=== PATIENT | female | born 1950 | race Caucasian/White ===

== ENCOUNTER → 2017-01-17 | Outpatient (CLI) | payer MEDICARE ==
--- NOTE | 2017-01-18 08:53 | RADIOLOGY REPORT (SQ) ---
EXAM DESCRIPTION: L SPINE WHOLE COMPLETED DATE/TIME: 01/17/2017 8:00 pm REASON FOR STUDY: RADICULOPATHY,LUMBAR REGION,PAIN IN RIGHT HIP,POSTLAMINECTOMY SYNDROME COMPARISON: None. NUMBER OF VIEWS: Five views including obliques. TECHNIQUE: AP, lateral, oblique, and sacral radiographic images acquired of the lumbar spine. LIMITATIONS: None. FINDINGS: MINERALIZATION: Osteopenic SEGMENTATION: Normal. No transitional anatomy. ALIGNMENT: Normal. VERTEBRAE: Maintained height. No fracture or worrisome bone lesion. DISCS: Diffuse disc space loss of height throughout the lumbar spine. Prior fusion with disc space p rosthesis at L4-5. Prior fusion without disc space prosthesis at L5-S1. POSTERIOR ELEMENTS: Old bilateral laminectomies at L4 and L5. Bulky facet arthropathy at L2-3 and L3 -4. HARDWARE: Prior fusion with transpedicular screws and dorsal fixation plates from L4 through S1. PARASPINAL SOFT TISSUES: Normal. PELVIS: Visualized SI joints unremarkable. Moderate right hip joint space narrowing. OTHER: No other significant finding. IMPRESSION: Lower lumbar fusion. Degenerative disc changes and facet arthropathy throughout the lum bar spine as above TECHNICAL DOCUMENTATION: JOB ID: [id number] [employer]- All Rights Reserved
--- NOTE | 2017-01-18 09:55 | RADIOLOGY REPORT (SQ) ---
EXAM DESCRIPTION: HIP RIGHT AP/LATERAL COMPLETED DATE/TIME: 01/17/2017 8:00 pm REASON FOR STUDY: RADICULOPATHY,LUMBAR REGION,PAIN IN RIGHT HIP,POSTLAMINECTOMY SYNDROME COMPARISON: None. NUMBER OF VIEWS: Two views. TECHNIQUE: AP and frog-leg view of the right hip. LIMITATIONS: None. FINDINGS: MINERALIZATION: Normal. RIGHT HIP: There is joint space narrowing and subchondral sclerosis. Small osteophytes off the super olateral acetabulum. No acute fracture or dislocation. OPPOSITE HIP: Similar changes are present the left hip. SOFT TISSUES: No findings. OTHER: No other significant finding. IMPRESSION: Degenerative changes in both hips right greater than left. No acute fracture or disloca tion. TECHNICAL DOCUMENTATION: JOB ID: [id number] [employer]- All Rights Reserved
== END ==
LOC: RAD 19:15
PROVIDERS: ATTEND Physician Assistant
DX: M54.16 Radiculopathy, lumbar region (principal); M96.1 Postlaminectomy syndrome, not elsewhere classified; M25.551 Pain in right hip
CPT/HCPCS: 72110

== ENCOUNTER → 2019-06-07 | Outpatient (CLI) | payer MEDICARE, OTHER ==
[2019-06-07 12:02] LABS: ABSOLUTE BASOPHILS # (AUTO) 0.2 10^3/uL (0.0-0.2); ABSOLUTE EOSINOPHILS # (AUTO) 0.2 10^3/uL (0.0-0.6); ABSOLUTE LYMPHOCYTES (AUTO) 1.4 10^3/uL (0.5-4.7); ABSOLUTE MONOCYTES (AUTO) 0.4 10^3/uL (0.1-1.4); ABSOLUTE NEUT (AUTO) 4.4 10^3/uL (1.7-8.2); BASOPHILS % (AUTO) 2.3 % (0-2); EOSINOPHILS % (AUTO) 3.5 % (0-6); HEMATOCRIT 40.7 % (36.0-47.0); HEMOGLOBIN 13.6 g/dL (12.0-15.5); LYMPHOCYTES % (AUTO) 21.9 % (13-45); MEAN CORPUSCULAR HEMOGLOBIN 28.5 pg (27.0-33.4); MEAN CORPUSCULAR HGB CONC 33.4 g/dL (32.0-36.0); MEAN CORPUSCULAR VOLUME 85 fl (80-97); PLATELET COUNT 243 10^3/uL (150-450); RED BLOOD COUNT 4.76 10^6/uL (3.72-5.28); SEGMENTED NEUTROPHILS % (AUTO) 66.3 % (42-78); TOTAL CELLS COUNTED % (AUTO) 100 %; WHITE BLOOD COUNT 6.6 10^3/uL (4.0-10.5)
[2019-06-07 12:29] LABS: ALBUMIN 4.3 g/dL (3.5-5.0); ANION GAP 11 (5-19); BLOOD UREA NITROGEN 24 mg/dL (7-20); C-REACTIVE PROTEIN 5.4 mg/L (<10.0); CARBON DIOXIDE 32 mmol/L (22-30); CHLORIDE 99 mmol/L (98-107); GLUCOSE 88 mg/dL (75-110); POTASSIUM 4.1 mmol/L (3.6-5.0)
[2019-06-07 12:33] LABS: PREALBUMIN 18.1 mg/dL (17.6-36.0)
[2019-06-07 12:54] LABS: ERYTHROCYTE SEDIMENTATION RATE 54 mm/hr (0-30)
--- NOTE | 2019-06-07 13:49 | RADIOLOGY REPORT (SQ) ---
EXAM DESCRIPTION: CHEST PA/LATERAL COMPLETED DATE/TIME: 06/07/2019 12:29 pm REASON FOR STUDY: ENCOUNTER FOR PREPROCEDURAL LABORATORY EXAMINATION COMPARISON: None. EXAM PARAMETERS: NUMBER OF VIEWS: two views TECHNIQUE: PA and lateral views of the chest were obtained. RADIATION DOSE: NA LIMITATIONS: none FINDINGS: LUNGS AND PLEURA: No consolidation, pleural effusion or pneumothorax. MEDIASTINUM AND HILAR STRUCTURES: No mediastinal or hilar contour abnormality. HEART AND VASCULAR STRUCTURES: The cardiac silhouette and pulmonary vasculature are within normal almanzar its. BONES: Findings of DISH. HARDWARE: Surgical clips that project near the gastroesophageal junction. OTHER: No other finding. IMPRESSION: No acute cardiopulmonary process. TECHNICAL DOCUMENTATION: JOB ID: [id number] [employer]- All Rights Reserved Reading location - IP/workstation name: [email or web address]
--- NOTE | 2019-06-07 21:22 | EKG REPORT ---
SEVERITY:- DEFECTIVE ECG - SINUS RHYTHM BASELINE ARTIFACT : Confirmed by: Paulina Goodwin MD 07-Jun-2019 21:21:37
== END ==
LOC: OD 11:18
PROVIDERS: ATTEND Orthopaedic Surgery
DX: Z01.810 Encounter for preprocedural cardiovascular examination (principal); Z01.818 Encounter for other preprocedural examination; I10 Essential (primary) hypertension; R73.09 Other abnormal glucose
CPT/HCPCS: 36415; 71046; 80048; 82040; 82306; 83036; 84134; 85025; 85652; 86140; 93005; 93010

== ENCOUNTER 2019-06-19 09:34 | Inpatient (IN) | payer MEDICARE, OTHER ==
[~2019-06-19 09:34] MED LIST: ACETAMINOPHEN 325 MG TABLET ONE; ACETAMINOPHEN 325 MG TABLET PO PRN; CEFAZOLIN SODIUM 2 GM in DEXTROSE 5%-WATER 100 ML IV PRN; CELECOXIB 200 MG CAPSULE ONE; CELECOXIB 200 MG CAPSULE PO PRN; GABAPENTIN 100 MG CAPSULE ONE; GABAPENTIN 100 MG CAPSULE PO PRN; LACTATED RINGERS 1000 ML IV PRN; ONDANSETRON HCL INJ/PF 4 MG/2 ML SDV IV PRN; ONDANSETRON HCL INJ/PF 4 MG/2 ML SDV ONE; OXYCODONE HCL SR 10 MG TABLET PO ONE; OXYCODONE HCL SR 10 MG TABLET PO PRN; SCOPOLAMINE HYDROBROMIDE 1.5 MG PATCH.TD72 ONE; SCOPOLAMINE HYDROBROMIDE 1.5 MG PATCH.TD72 TD PRN; TRAMADOL HCL 50 MG TABLET ONE; TRAMADOL HCL 50 MG TABLET PO PRN; TRANEXAMIC ACID INJ/PF 1,000 MG/10 ML SDV IV PRN; VANCOMYCIN HCL 1,000 MG in DEXTROSE 5%-WATER 250 ML IV PRN
[2019-07-11] MEDS ORDERED: LACTATED RINGERS 1000 ML IV PRN (05:00)
[2019-07-11] MEDS ORDERED: ACETAMINOPHEN 325 MG TABLET PO PRN (05:00)
[2019-07-11] MEDS ORDERED: TRANEXAMIC ACID INJ/PF 1,000 MG/10 ML SDV IV PRN (05:00)
[2019-07-11] MEDS ORDERED: SCOPOLAMINE HYDROBROMIDE 1.5 MG PATCH.TD72 TD PRN (05:00)
[2019-07-11] MEDS ORDERED: VANCOMYCIN HCL 1,000 MG in DEXTROSE 5%-WATER 250 ML IV PRN (05:00)
[2019-07-11] MEDS ORDERED: ONDANSETRON HCL INJ/PF 4 MG/2 ML SDV IV PRN (05:00)
[2019-07-11] MEDS ORDERED: GABAPENTIN 100 MG CAPSULE PO PRN (05:00)
[2019-07-11] MEDS ORDERED: OXYCODONE HCL SR 10 MG TABLET PO PRN (05:00)
[2019-07-11] MEDS ORDERED: CELECOXIB 200 MG CAPSULE PO PRN (05:00)
[2019-07-11] MEDS ORDERED: CEFAZOLIN SODIUM 2 GM in DEXTROSE 5%-WATER 100 ML IV PRN (05:00)
[2019-07-11] MEDS ORDERED: TRAMADOL HCL 50 MG TABLET PO PRN (05:00)
[2019-07-11] MEDS ORDERED: FENTANYL CITRATE INJ/PF 100 MCG/2 ML AMPUL ONE (06:58)
[2019-07-11] MEDS ORDERED: MIDAZOLAM 2 MG/2 ML INJ ONE (06:58)
[2019-07-11] MEDS ORDERED: DEXAMETHASONE SOD PHOSPHATE INJ 4 MG/1 ML VIAL ONE (06:59)
[2019-07-11] MEDS ORDERED: PROPOFOL INJ 200 MG/20 ML VIAL IV ONE (06:59)
[2019-07-11] MEDS ORDERED: ONDANSETRON HCL INJ/PF 4 MG/2 ML SDV ONE (06:59)
[2019-07-11] MEDS ORDERED: VANCOMYCIN HCL INJ 1000 MG VIAL ONE (08:09)
[2019-07-11] MEDS ORDERED: KETOROLAC TROMETHAMINE INJ/PF 30 MG/1 ML SDV ONE (08:09)
[2019-07-11] MEDS ORDERED: BUPIVACAINE HCL 0.25 % INJ/PF (2.5 MG/1 ML) 30 ML VIAL ONE (08:09)
[2019-07-16] MEDS ORDERED: ONDANSETRON HCL INJ/PF 4 MG/2 ML SDV IV PRN (05:00)
[2019-07-16] MEDS ORDERED: ACETAMINOPHEN 325 MG TABLET PO PRN (05:00)
[2019-07-16] MEDS ORDERED: VANCOMYCIN HCL 1,000 MG in DEXTROSE 5%-WATER 250 ML IV PRN (05:00)
[2019-07-16] MEDS ORDERED: OXYCODONE HCL SR 10 MG TABLET PO PRN (05:00)
[2019-07-16] MEDS ORDERED: TRANEXAMIC ACID INJ/PF 1,000 MG/10 ML SDV IV PRN (05:00)
[2019-07-16] MEDS ORDERED: GABAPENTIN 100 MG CAPSULE PO PRN (05:00)
[2019-07-16] MEDS ORDERED: LACTATED RINGERS 1000 ML IV PRN (05:00)
[2019-07-16] MEDS ORDERED: TRAMADOL HCL 50 MG TABLET PO PRN (05:00)
[2019-07-16] MEDS ORDERED: SCOPOLAMINE HYDROBROMIDE 1.5 MG PATCH.TD72 TD PRN (05:00)
[2019-07-16] MEDS ORDERED: CEFAZOLIN SODIUM 2 GM in DEXTROSE 5%-WATER 100 ML IV PRN (05:00)
[2019-07-16] MEDS ORDERED: CELECOXIB 200 MG CAPSULE PO PRN (05:00)
[2019-07-16] MEDS ORDERED: OXYCODONE HCL SR 10 MG TABLET PO ONE (05:20)
[2019-07-16] MEDS ORDERED: ONDANSETRON HCL INJ/PF 4 MG/2 ML SDV ONE ×2 (05:20→12:37)
[2019-07-16] MEDS ORDERED: SCOPOLAMINE HYDROBROMIDE 1.5 MG PATCH.TD72 ONE (05:20)
[2019-07-16] MEDS ORDERED: ACETAMINOPHEN 325 MG TABLET ONE (05:20)
[2019-07-16] MEDS ORDERED: GABAPENTIN 100 MG CAPSULE ONE (05:20)
[2019-07-16] MEDS ORDERED: TRAMADOL HCL 50 MG TABLET ONE (05:20)
[2019-07-16] MEDS ORDERED: CELECOXIB 200 MG CAPSULE ONE (05:22)
[2019-07-16] MEDS ORDERED: METOPROLOL SUCCINATE 25 MG TAB.SR.24H PO ONE (09:34)
[2019-07-16] MEDS ORDERED: GENTAMICIN SULFATE INJ 80 MG/2 ML VIAL ONE (11:58)
[2019-07-16] MEDS ORDERED: KETOROLAC TROMETHAMINE INJ/PF 30 MG/1 ML SDV ONE (11:58)
[2019-07-16] MEDS ORDERED: VANCOMYCIN HCL INJ 1000 MG VIAL ONE (11:58)
[2019-07-16] MEDS ORDERED: BUPIVACAINE HCL 0.25 % INJ/PF (2.5 MG/1 ML) 30 ML VIAL ONE (11:58)
[2019-07-16] MEDS ORDERED: ROCURONIUM BROMIDE INJ 50 MG/5 ML VIAL IV ONE (12:37)
[2019-07-16] MEDS ORDERED: NEOSTIGMINE METHYLSULFATE 10 MG/10 ML VIAL ONE (12:37)
[2019-07-16] MEDS ORDERED: GLYCOPYRROLATE 1 MG/5 ML VIAL ONE (12:37)
[2019-07-16] MEDS ORDERED: PHENYLEPHRINE HCL INJ/PF 10 MG/1 ML SDV ONE (12:37)
[2019-07-16] MEDS ORDERED: DEXAMETHASONE SOD PHOSPHATE INJ 4 MG/1 ML VIAL ONE (12:37)
[2019-07-16] MEDS ORDERED: FENTANYL CITRATE INJ/PF 250 MCG/5 ML AMPULE ONE (12:39)
[2019-07-16] MEDS ORDERED: MIDAZOLAM 2 MG/2 ML INJ ONE (12:39)
[2019-07-16] MEDS ORDERED: HYDROMORPHONE HCL INJ/PF 2 MG/ML AMPULE ONE (12:40)
[2019-07-16] MEDS ORDERED: PROPOFOL INJ 200 MG/20 ML VIAL IV ONE (12:41)
[2019-07-16] MEDS ORDERED: TRANEXAMIC ACID INJ/PF 1,000 MG/10 ML SDV ONE (12:41)
[2019-07-16] MEDS ORDERED: BACITRACIN INJ 50,000 UNIT VIAL ONE (12:44)
[2019-07-16] MEDS ORDERED: LIDOCAINE 1% INJ-PF (10 MG/ML) 30 ML SDV ONE (12:44)
[2019-07-16] MEDS ORDERED: FENTANYL CITRATE INJ/PF 100 MCG/2 ML AMPUL IV PRN ×3 (13:43)
[2019-07-16] MEDS ORDERED: PROMETHAZINE HCL INJ 25 MG/1 ML VIAL IV PRN (13:43)
[2019-07-16] MEDS ORDERED: DIPHENHYDRAMINE HCL 50 MG/ML VIAL IV PRN (13:43)
--- NOTE | 2019-07-16 15:15 | Operative Report ---
Operative Report DATE OF SURGERY: 07/16/19 PREOPERATIVE DIAGNOSIS: Severe left hip primary osteoarthritis POSTOPERATIVE DIAGNOSIS: Severe left hip primary osteoarthritis OPERATION: Left total hip arthroplasty SURGEON: NADIR COOL JR ANESTHESIA: GA COMPLICATIONS: None ESTIMATED BLOOD LOSS: 100 cc PROCEDURE: Implants: Biomet Taperloc micro-plasty size 10 femoral stem with standard offset, a G7 size 52 cup, and a dual mobility liner, a standard neck length 42 dual mobility outer liner with a 28 mm ceramic head. BRIEF HISTORY: 68 year old female with severe degenerative arthritis of left hip, which has failed conservative treatment and has elected for a total hip arthroplasty. Risks include but are not limited to bleeding, infection, anesthesia, , injury to nerve or vessel, pain, scar, leg length inequality, dislocation, future surgery, and blood clots. Patient read through the pre-op counseling form and signed and solicited for surgery on their left hip. OPERATIVE PROCEDURE: Patient was brought to the operating room on and underwent spinal anesthesia. 2 grams of Ancef and 1 g of vancomycin was given. After proper anesthesia was obtained, patient was positioned, padded, prepped, and draped in the usual sterile fashion on the operating room table. Appropriate time out was performed. An anterior approach to the hip was undertaken with meticulous hemostasis through the deep interval. A capsulectomy was performed followed by exposure of the femoral neck. The femoral neck was cut in line with the femoral broach and the femoral head was removed. The acetabulum was then exposed with three retractors in an atraumatic fashion. Soft tissue and osteophytes were removed. Medialization reaming was performed followed by anatomic reaming up to accept a 51 mm acetabulum. Wound was irrigated with dilute betadyne solution and the 52 mm acetabulum was impacted into correct position and stability checked by manipulating the impaction handle which rocked the pelvis. However the bone quality was poor, and the decision was made to proceed with a acetabular screw. We drilled superiorly and measured a 30 screw which was then implanted with excellent bite. A dual mobility liner was impacted into the shell with good stability. Potential impinging osteophytes were removed. Attention was then directed toward the femur, which was exposed with two retractors in an atraumatic fashion. A bone hook was placed to carefully perform releases along the superior capsule until the femur was safely delivered through the wound. A jukebox coin collector was utilized followed by lateralization rasping and then broaching up to accept a #10 femur. With a standard offset neck and a standard head, stability was good in flexion and extension with equal leg lengths. The real standard offset femur was impacted into a copiously irrigated femoral canal. A 42 mm dual mobility construct was impacted on a clean dry femoral taper. The hip was irrigated and reduced, further irrigation with antibiotic solution, betadine solution, then antibiotic solution. Bleeders were coagulated with bovie cautery. The fascia was then closed with number 2 Stratofix; the subcutaneous tissue closed with interrupted inverted 2-0 monocryl then running 3-0 monocryl subcuticular. Dermabond skin glue was applied followed by a silver dressing. All needle sponge and instrument counts were correct. Patient was awakened from sedation anesthesia and taken to recovery room in good condition. Thank you, Nadir Cool DO
[2019-07-16] MEDS ORDERED: ACETAMINOPHEN 1,000 MG/100 ML RTUPB IV ONE ×2 (15:35→16:45)
--- NOTE | 2019-07-16 16:09 | RADIOLOGY REPORT (SQ) ---
EXAM DESCRIPTION: HIP IN OPERATING RM; NO CHG FLUORO COMPLETED DATE/TIME: 07/16/2019 3:39 pm REASON FOR STUDY: LEFT TOTAL HIP M25.552 PAIN IN LEFT HIP COMPARISON: None. FLUOROSCOPY TIME: Less than 0.1 minutes. 2 images saved to PACS. TECHNIQUE: Intra-operative images acquired during surgical procedure to evaluate progress. NUMBER OF IMAGES: 2 images. LIMITATIONS: None. FINDINGS: Images of the hip acquired during the procedure. IMPRESSION: IMAGE(S) OBTAINED DURING PROCEDURE. COMMENT: Quality ID [id number]: Final reports for procedures using fluoroscopy that document radiation exp osure indices, or exposure time and number of fluorographic images (if radiation exposure indices are not available) Please consult full operative report of the attending physician for description of the procedure. TECHNICAL DOCUMENTATION: JOB ID: [id number] 2010 [email or web address]- All Rights Reserved Reading location - IP/workstation name: [email or web address]
--- NOTE | 2019-07-16 16:09 | RADIOLOGY REPORT (SQ) ---
EXAM DESCRIPTION: HIP IN OPERATING RM; NO CHG FLUORO COMPLETED DATE/TIME: 07/16/2019 3:39 pm REASON FOR STUDY: LEFT TOTAL HIP M25.552 PAIN IN LEFT HIP COMPARISON: None. FLUOROSCOPY TIME: Less than 0.1 minutes. 2 images saved to PACS. TECHNIQUE: Intra-operative images acquired during surgical procedure to evaluate progress. NUMBER OF IMAGES: 2 images. LIMITATIONS: None. FINDINGS: Images of the hip acquired during the procedure. IMPRESSION: IMAGE(S) OBTAINED DURING PROCEDURE. COMMENT: Quality ID [id number]: Final reports for procedures using fluoroscopy that document radiation exp osure indices, or exposure time and number of fluorographic images (if radiation exposure indices are not available) Please consult full operative report of the attending physician for description of the procedure. TECHNICAL DOCUMENTATION: JOB ID: [id number] 2010 [employer]- All Rights Reserved Reading location - IP/workstation name: [email or web address]
--- NOTE | 2019-07-16 16:10 | RADIOLOGY REPORT (SQ) ---
EXAM DESCRIPTION: HIP LEFT AP/LATERAL COMPLETED DATE/TIME: 07/16/2019 3:54 pm REASON FOR STUDY: POST OP M25.552 PAIN IN LEFT HIP COMPARISON: None. NUMBER OF VIEWS: Two view(s). TECHNIQUE: Digital radiographic images of the left hip post-procedure. LIMITATIONS: None. FINDINGS: BONES: No worrisome or unexpected findings post-procedure. DEVICE: Total hip replacement. Components of the device in appropriate location. SOFT TISSUES: No worrisome findings. Expected postoperative soft tissue changes. IMPRESSION: SATISFACTORY POSTOPERATIVE LEFT HIP. TECHNICAL DOCUMENTATION: JOB ID: [id number] 2011 [employer]- All Rights Reserved Reading location - IP/workstation name: [email or web address]
[2019-07-16] MEDS: GABAPENTIN 300 MG CAPSULE PO SCH ×2 (16:22→21:50)
[2019-07-16] MEDS ORDERED: OXYCODONE HCL IR 5 MG TABLET PO PRN ×2 (16:32→16:33)
[2019-07-16] MEDS ORDERED: MORPHINE SULFATE 10 MG/ML INJ IV PRN (16:33)
[2019-07-16] MEDS ORDERED: ZOLPIDEM TARTRATE 5 MG TABLET PO PRN (16:37)
[2019-07-16] MEDS ORDERED: DIPHENHYDRAMINE HCL 25 MG CAPSULE PO PRN (16:37)
[2019-07-16] MEDS ORDERED: DOCUSATE SODIUM 100 MG CAPSULE PO PRN (16:38)
[2019-07-16] MEDS ORDERED: NORMAL SALINE 1000 ML 1,000 ML IV PRN (16:38)
[2019-07-16] MEDS ORDERED: ONDANSETRON 4 MG TAB.RAPDIS PO PRN (16:39)
[2019-07-16] MEDS ORDERED: PANTOPRAZOLE SODIUM 20 MG TABLET.DR PO ONE (17:30)
[2019-07-16] MEDS ORDERED: (PENDING PHARMACY ID) (Metformin Hcl [Metformin Hcl Er] 500 MG) PO SCH (18:00)
[2019-07-16] MEDS ORDERED: INFLUENZA QUAD (6MOS+) 2019-20 VAC 0.5 ML SYR IM ONE (18:11)
[2019-07-16] MEDS: CEFAZOLIN SODIUM 2 GM in DEXTROSE 5%-WATER 100 ML IV SCH (21:50)
[2019-07-16] MEDS: ACETAMINOPHEN 325 MG TABLET PO SCH (21:51)
[2019-07-16] MEDS: KETOROLAC TROMETHAMINE INJ/PF 30 MG/1 ML SDV IV SCH (21:52)
[2019-07-16] MEDS ORDERED: GABAPENTIN 100 MG CAPSULE PO SCH (22:00)
[2019-07-17] MEDS: CEFAZOLIN SODIUM 2 GM in DEXTROSE 5%-WATER 100 ML IV SCH (05:27)
[2019-07-17] MEDS: LEVOTHYROXINE SODIUM 0.112 MG TABLET PO SCH (05:27)
[2019-07-17] MEDS: LEVOTHYROXINE SODIUM 0.025 MG TABLET PO SCH (05:27)
[2019-07-17] MEDS: GABAPENTIN 300 MG CAPSULE PO SCH ×3 (05:27→23:10)
[2019-07-17] MEDS: ACETAMINOPHEN 325 MG TABLET PO SCH ×3 (05:27→23:08)
[2019-07-17] MEDS: KETOROLAC TROMETHAMINE INJ/PF 30 MG/1 ML SDV IV SCH ×3 (05:28→23:09)
[2019-07-17] MEDS: CELECOXIB 200 MG CAPSULE PO SCH (09:49)
[2019-07-17] MEDS: METOPROLOL SUCCINATE 50 MG TAB.SR.24H PO SCH (09:49)
[2019-07-17] MEDS: POLYETHYLENE GLYCOL 3350 POWDER 17 GM/1 PACKET PO SCH (09:49)
[2019-07-17] MEDS: ASPIRIN 325 MG TABLET PO SCH (09:49)
[2019-07-17] MEDS ORDERED: (PENDING PHARMACY ID) (Levothyroxine Sodium [Synthroid] 137 MCG) PO SCH (10:00)
[2019-07-17] MEDS ORDERED: (PENDING PHARMACY ID) (Duloxetine Hcl [Duloxetine Hcl] 60 MG) PO SCH (10:00)
[2019-07-17] MEDS ORDERED: TROSPIUM CHLORIDE 60 MG PO SCH (10:00)
[2019-07-17] MEDS ORDERED: DULOXETINE HCL 30 MG CAPSULE.DR PO SCH (10:00)
--- NOTE | 2019-07-17 15:01 | PDOC PROGRESS REPORT ---
Subjective Progress Note for:: 07/17/19 Subjective:: The patient is doing well this AM. Pain is present but not out of proportion and well controlled on their current medications. There are no new symptoms or overnight events. Overall they are felling well without complaints. They deny chest pain, shortness of breath or motor or sensory loss. Reason For Visit: M25.552 PAIN IN LEFT HIP Physical Exam Vital Signs: Temp Pulse Resp BP Pulse Ox 98.6 F 69 20 92/36 L 98 07/17/19 11:06 07/17/19 11:06 07/17/19 11:06 07/17/19 11:06 07/17/19 11:06 Intake & Output 07/16/19 07/17/19 07/18/19 06:59 06:59 06:59 Intake Total 5500 Output Total 2350 Balance 3150 Weight 83.91 kg 76 kg Physical Exam: Left lower extremity -Pulses 2+ distally -Compartments soft -Wound clean dry and intact minimal spotting, appropriate appearance for postoperative day #1 -Sensation grossly intact to L3-4-5 S1 -Motor grossly intact to EHL TA gastroc and quad - Able to perform quad extension and elevate heel off of bed. Results Laboratory Results: 07/16/19 09:37 Impressions: Fluoroscopy 07/16/19 00:00 IMPRESSION: IMAGE(S) OBTAINED DURING PROCEDURE. Hip X-Ray 07/16/19 15:22 IMPRESSION: SATISFACTORY POSTOPERATIVE LEFT HIP. Assessment & Plan - Diagnosis (1) Status post total hip replacement, left Is this a current diagnosis for this admission?: Yes Plan: Postoperative day #1 -She is currently considering rehab placement. I discussed this with the patient and with case management. I will leave this decision up to the patient in regards to her concerns for her home social situation with multiple animals, small children, and family who may not be very supportive. - 2 doses of Ancef postoperatively q 8 hours to complete 24 hours perioperatively -Weightbearing as tolerated, no precautions, encourage out of bed GEORGE for ADL training - PT/OT - Keep knee extended in bed, rolled towel under the ankle to obtain full extension -aspirin 325 daily for DVT prophylaxis for 6 weeks -multimodal pain management to avoid excessive narcotics, including gabapentin, tramadol, Toradol, acetaminophen. -Dressing should not be removed for 7 to 10 days until seen in the office -May shower with the dressing intact, if it starts to come off she should not get the incision wet. -I would like to follow the patient my office within the next 7 to 10 days at [address] [place] [address]. in [place] office #: [phone] - Time Time Spent with patient: Less than 15 minutes
[2019-07-17 17:15] LABS: ABSOLUTE BASOPHILS # (AUTO) 0.1 10^3/uL (0.0-0.2); ABSOLUTE EOSINOPHILS # (AUTO) 0.1 10^3/uL (0.0-0.6); ABSOLUTE LYMPHOCYTES (AUTO) 1.9 10^3/uL (0.5-4.7); ABSOLUTE MONOCYTES (AUTO) 0.7 10^3/uL (0.1-1.4); ABSOLUTE NEUT (AUTO) 6.1 10^3/uL (1.7-8.2); BASOPHILS % (AUTO) 1.1 % (0-2); EOSINOPHILS % (AUTO) 1.1 % (0-6); HEMOGLOBIN 11.4 g/dL (12.0-15.5); LYMPHOCYTES % (AUTO) 21.3 % (13-45); MEAN CORPUSCULAR HEMOGLOBIN 28.6 pg (27.0-33.4); MEAN CORPUSCULAR HGB CONC 33.6 g/dL (32.0-36.0); MEAN CORPUSCULAR VOLUME 85 fl (80-97); MONOCYTES % (AUTO) 8.4 % (3-13); PLATELET COUNT 203 10^3/uL (150-450); RED BLOOD COUNT 3.99 10^6/uL (3.72-5.28); RED CELL DISTRIBUTION WIDTH 14.7 % (11.5-14.0); SEGMENTED NEUTROPHILS % (AUTO) 68.1 % (42-78); TOTAL CELLS COUNTED % (AUTO) 100 %
[2019-07-17] MEDS: METFORMIN HCL 500 MG TABLET PO SCH (17:32)
[2019-07-17 17:43] LABS: ANION GAP 9 (5-19); BLOOD UREA NITROGEN 29 mg/dL (7-20); CALCIUM 8.5 mg/dL (8.4-10.2); CARBON DIOXIDE 28 mmol/L (22-30); CHLORIDE 99 mmol/L (98-107); GLUCOSE 132 mg/dL (75-110)
--- NOTE | 2019-07-17 17:56 | PDOC CONSULTATION ---
Consultation Consult Date: 07/17/19 Provider Consulted: ZOYA NOBLES History of Present Illness Admission Date/PCP: 07/16/19 09:18 RAMOS CLEMENTS MD Patient complains of: confusion History of Present Illness: SKYLAR DEMPSEY is a 68 year old female with a past medical history of hypertension, mitral valve prolapse, prediabetes and DISH who was admitted under orthopedics for a left hip arthroplasty. Patient underwent left hip arthroplasty yesterday for severe primary left hip osteoarthritis. She tolerated procedure well. However earlier today, she was noted to have episodes of confusion. Family reports that patient thought that she was at home and kept telling family members why people are being noisy at the kitchen. Patient was easily redirected and reoriented. She does not have a history of dementia or cognitive issues prior to this admission. Upon encounter, patient appears to be at her baseline mentation. She is very coherent and AO x4. Unremarkable neurologic examination. Daughter who is a nurse did mention that she saw she still had a scopolamine patch on her back from her surgery yesterday. Daughter said that she removed the patch herself prior to this encounter. Patient has only been getting Tylenol and she had a dose of oxycodone last night. Past Medical History Cardiac Medical History: Reports: Hyperlipidema, Hypertension Denies: Atrial Fibrillation, Congestive Heart Failure, Coronary Artery Disease, Myocardial Infarction, Peripheral Vascular Disease, Heart Murmur Pulmonary Medical History: Denies: Asthma, Bronchitis, Chronic Obstructive Pulmonary Disease (COPD), Sleep Apnea Neurological Medical History: Reports: Seizures - as a child Endocrine Medical History: Reports: Hypothyroidism Denies: Hyperthyroidism GI Medical History: Reports: Gastroesophageal Reflux Disease Denies: Crohn's Disease, Hiatal Hernia Musculoskeltal Medical History: Reports: Arthritis Denies: Fibromyalgia Psychiatric Medical History: Reports: Depression Denies: Bipolar Disorder, Dementia, Post Traumatic Stress Disorder Hematology: Reports: Anemia - years ago Past Surgical History Past Surgical History: Reports: Appendectomy, Cholecystectomy, Gastric Bypass Surgery - stapling, Hysterectomy, Tonsillectomy Denies: Amputation, Section, Colostomy, Coronary Artery Bypass Graft, Herniorrhaphy, Mastectomy, Tubal Ligation Social History Smoking Status: Never Smoker Hx Recreational Drug Use: No Hx Prescription Drug Abuse: No - Advance Directive Resuscitation Status: Full Code Family History Parental Family History Reviewed: Yes - No premature CAD Children Family History Reviewed: No Sibling(s) Family History Reviewed.: No Medication/Allergy Home Medications: Cyanocobalamin (Vitamin B-12) [Vitamin B-12 Inj 1000 Mcg/1 ml Vial] 1 ml IM .QMONTHLY 05/29/19 Duloxetine HCl 60 mg PO DAILY 05/29/19 Gabapentin 600 mg PO Q8 05/29/19 Levothyroxine Sodium [Synthroid] 137 mcg PO DAILY 05/29/19 Methocarbamol 1,000 mg PO BIDP PRN 05/29/19 Metoprolol Succinate [Toprol Xl 50 mg Tab.sr] 50 mg PO DAILY 05/29/19 Tramadol HCl [Ultram] 100 mg PO Q8HP PRN 05/29/19 Trospium Chloride [Trospium Chloride ER] 60 mg PO DAILY 05/29/19 Acetaminophen [Tylenol 325 mg Tablet] 975 mg PO Q8 tablet 07/17/19 Aspirin [Aspirin 325 mg Tablet] 325 mg PO DAILY tablet 07/17/19 Celecoxib [Celebrex 200 mg Capsule] 200 mg PO DAILY capsule 07/17/19 Diphenhydramine HCl [Benadryl 25 mg Capsule] 25 mg PO Q6HP PRN capsule 07/17/19 Docusate Sodium [Colace 100 mg Capsule] 100 mg PO TIDP PRN capsule 07/17/19 Metformin HCl 500 mg PO BID 07/17/19 Metoprolol Succinate [Toprol Xl 50 mg Tab.sr] 50 mg PO DAILY tab.sr.24h 07/17/19 Oxycodone HCl [Oxy-Ir 5 mg Tablet] 5 mg PO Q4HP PRN tablet 07/17/19 Oxycodone HCl [Oxy-Ir 5 mg Tablet] 10 mg PO Q4HP PRN tablet 07/17/19 Allergies/Adverse Reactions: codeine Allergy (Verified 07/16/19 10:31) Iodinated Contrast Media Allergy (Verified 07/16/19 10:31) meperidine [From Demerol] Allergy (Verified 07/16/19 10:31) morphine Allergy (Verified 07/16/19 10:31) nifedipine [From Procardia] Allergy (Verified 07/16/19 10:31) Review of Systems All systems: reviewed and no additional remarkable complaints except as stated - As mentioned in HPI Physical Exam Vital Signs: Temp Pulse Resp BP Pulse Ox 98.8 F 70 19 98/40 L 97 07/17/19 15:23 07/17/19 15:23 07/17/19 15:23 07/17/19 15:23 07/17/19 15:23 Intake & Output 07/16/19 07/17/19 07/18/19 06:59 06:59 06:59 Intake Total 5500 Output Total 2350 Balance 3150 Weight 184 lb 15.84 oz 167 lb 8.821 oz General appearance: PRESENT: no acute distress, well-developed, well-nourished Head exam: PRESENT: atraumatic, normocephalic Eye exam: PRESENT: conjunctiva pink, EOMI, PERRLA. ABSENT: scleral icterus Ear exam: PRESENT: normal external ear exam Mouth exam: PRESENT: moist, tongue midline Neck exam: ABSENT: carotid bruit, JVD, lymphadenopathy, thyromegaly Respiratory exam: PRESENT: clear to auscultation [place]. ABSENT: rales, rhonchi, wheezes Cardiovascular exam: PRESENT: RRR. ABSENT: diastolic murmur, rubs, systolic murmur Pulses: PRESENT: normal dorsalis pedis pul GI/Abdominal exam: PRESENT: normal bowel sounds, soft. ABSENT: distended, guarding, mass, organolmegaly, rebound, tenderness Rectal exam: PRESENT: deferred Extremities exam: PRESENT: full ROM. ABSENT: calf tenderness, clubbing, pedal edema Neurological exam: PRESENT: alert, awake, oriented to person, oriented to place, oriented to time, oriented to situation, CN II-XII grossly intact. ABSENT: motor sensory deficit Results Laboratory Results: 07/17/19 17:06 07/17/19 17:06 WBC 9.0 RBC 3.99 Hgb 11.4 L Hct 34.0 L MCV 85 MCH 28.6 MCHC 33.6 RDW 14.7 H Plt Count 203 Seg Neutrophils % 68.1 Impressions: Fluoroscopy 07/16/19 00:00 IMPRESSION: IMAGE(S) OBTAINED DURING PROCEDURE. Hip X-Ray 07/16/19 15:22 IMPRESSION: SATISFACTORY POSTOPERATIVE LEFT HIP. Assessment and Plan - Diagnosis (1) Acute encephalopathy Is this a current diagnosis for this admission?: Yes Plan: Patient appears to be at her baseline mentation and is very coherent and AO x4 on encounter. Differentials for her confusion earlier include acute delirium post surgery but also considering scopolamine contributing to the confusion as it does cause disorientation in some patients. As mentioned, scopolamine patch was just removed by daughter prior to this encounter. Agree with primary service about minimizing opiates for pain control. Will check a CBC and BMP as well. (2) Status post total hip replacement, left Is this a current diagnosis for this admission?: Yes Plan: Orthopedics following. - Time Time Spent with patient: 25-34 minutes
[2019-07-17] MEDS: ONDANSETRON HCL INJ/PF 4 MG/2 ML SDV IV PRN (18:48)
[2019-07-17] MEDS: NORMAL SALINE 1000 ML 1,000 ML IV PRN (18:49)
--- NOTE | 2019-07-17 19:27 | RADIOLOGY REPORT (SQ) ---
EXAM DESCRIPTION: KUB/ABDOMEN (SINGLE VIEW) COMPLETED DATE/TIME: 07/17/2019 7:17 pm REASON FOR STUDY: vomiting M25.552 PAIN IN LEFT HIP COMPARISON: None. NUMBER OF VIEWS: One view. TECHNIQUE: Supine radiographic image of the abdomen acquired. LIMITATIONS: None. FINDINGS: BOWEL GAS PATTERN: No pathologically dilated loops of bowel. Gas and stool filled colonic loops. 2/ food-filled stomach. CALCIFICATIONS: No suspicious calcifications. SOFT TISSUES: No gross mass or suggestion of organomegaly. HARDWARE: Surgical clips overlie upper abdomen. Partially evaluated lumbar fusion hardware and left hip arthroplasty BONES: No acute fracture. No worrisome bone lesions. OTHER: No other significant finding. IMPRESSION: No evidence of intestinal obstruction or other acute intra-abdominal/ pelvic process. TECHNICAL DOCUMENTATION: JOB ID: [id number] 2010 [email or web address]- All Rights Reserved Reading location - IP/workstation name: [email or web address]
--- NOTE | 2019-07-17 19:28 | RADIOLOGY REPORT (SQ) ---
EXAM DESCRIPTION: CHEST SINGLE VIEW COMPLETED DATE/TIME: 07/17/2019 7:17 pm REASON FOR STUDY: cough COMPARISON: 06/07/2019 EXAM PARAMETERS: NUMBER OF VIEWS: One view. TECHNIQUE: Single frontal radiographic view of the chest acquired. RADIATION DOSE: NA LIMITATIONS: None. FINDINGS: LUNGS AND PLEURA: No opacities, masses or pneumothorax. No pleural effusion. MEDIASTINUM AND HILAR STRUCTURES: No masses. Contour normal. HEART AND VASCULAR STRUCTURES: Heart normal in size. Normal vasculature. BONES: No acute findings. HARDWARE: Surgical clips overlie left upper quadrant. Partially visualized cervical fusion hardware. OTHER: No other significant finding. IMPRESSION: No focal airspace disease or other evidence of acute cardiopulmonary process. TECHNICAL DOCUMENTATION: JOB ID: [id number] 2010 [employer]- All Rights Reserved Reading location - IP/workstation name: [email or web address]
[2019-07-17] MEDS: TRAMADOL HCL 50 MG TABLET PO PRN (23:01)
[2019-07-17 23:42] LABS: APPEARANCE,URINE SLIGHTLY-CLOUDY; BILIRUBIN,URINE NEGATIVE (NEGATIVE); COLOR,URINE YELLOW; GLUCOSE, URINE NEGATIVE (NEGATIVE); KETONES,URINE NEGATIVE (NEGATIVE); LEUKOCYTE ESTERASE,URINE NEGATIVE (NEGATIVE); NITRITE,URINE NEGATIVE (NEGATIVE); PROTEIN,URINE NEGATIVE (NEGATIVE); URINE SPECIFIC GRAVITY 1.024; UROBILINOGEN,URINE NEGATIVE mg/dL (<2.0)
[2019-07-18] MEDS: GABAPENTIN 300 MG CAPSULE PO SCH ×2 (05:59→18:14)
[2019-07-18] MEDS: NORMAL SALINE 1000 ML 1,000 ML IV PRN (06:22)
[2019-07-18] MEDS: ACETAMINOPHEN 325 MG TABLET PO SCH ×2 (08:12→14:00)
[2019-07-18] MEDS: ONDANSETRON HCL INJ/PF 4 MG/2 ML SDV IV PRN (08:14)
[2019-07-18] MEDS: LEVOTHYROXINE SODIUM 0.025 MG TABLET PO SCH (08:15)
[2019-07-18] MEDS: LEVOTHYROXINE SODIUM 0.112 MG TABLET PO SCH (08:15)
[2019-07-18] MEDS: METFORMIN HCL 500 MG TABLET PO SCH ×2 (09:45→18:13)
[2019-07-18] MEDS: ASPIRIN 325 MG TABLET PO SCH (09:45)
[2019-07-18] MEDS: CELECOXIB 200 MG CAPSULE PO SCH (09:46)
[2019-07-18] MEDS: POLYETHYLENE GLYCOL 3350 POWDER 17 GM/1 PACKET PO SCH (09:48)
[2019-07-18] MEDS: METOPROLOL SUCCINATE 50 MG TAB.SR.24H PO SCH (09:49)
[2019-07-18 10:30] LABS: ABSOLUTE BASOPHILS # (AUTO) 0.1 10^3/uL (0.0-0.2); ABSOLUTE EOSINOPHILS # (AUTO) 0.2 10^3/uL (0.0-0.6); ABSOLUTE LYMPHOCYTES (AUTO) 0.9 10^3/uL (0.5-4.7); ABSOLUTE MONOCYTES (AUTO) 0.5 10^3/uL (0.1-1.4); ABSOLUTE NEUT (AUTO) 4.7 10^3/uL (1.7-8.2); BASOPHILS % (AUTO) 0.9 % (0-2); EOSINOPHILS % (AUTO) 3.5 % (0-6); HEMATOCRIT 30.8 % (36.0-47.0); HEMOGLOBIN 10.5 g/dL (12.0-15.5); LYMPHOCYTES % (AUTO) 13.7 % (13-45); MEAN CORPUSCULAR HEMOGLOBIN 29.3 pg (27.0-33.4); MEAN CORPUSCULAR VOLUME 86 fl (80-97); MONOCYTES % (AUTO) 8.2 % (3-13); PLATELET COUNT 163 10^3/uL (150-450); RED BLOOD COUNT 3.58 10^6/uL (3.72-5.28); RED CELL DISTRIBUTION WIDTH 14.4 % (11.5-14.0); SEGMENTED NEUTROPHILS % (AUTO) 73.7 % (42-78); TOTAL CELLS COUNTED % (AUTO) 100 %; WHITE BLOOD COUNT 6.3 10^3/uL (4.0-10.5)
--- NOTE | 2019-07-18 10:41 | RADIOLOGY REPORT (SQ) ---
EXAM DESCRIPTION: CT HEAD WITHOUT COMPLETED DATE/TIME: 07/18/2019 10:22 am REASON FOR STUDY: AMS M25.552 PAIN IN LEFT HIP COMPARISON: None. TECHNIQUE: Axial images acquired through the brain without intravenous contrast. Images reviewed wi th bone, brain and subdural windows. Additional sagittal and coronal reconstructions were generated. Images stored on PACS. All CT scanners at this facility use dose modulation, iterative reconstruction, and/or weight based d osing when appropriate to reduce radiation dose to as low as reasonably achievable (ALARA). [facility]: Dose Right [facility]: CareDose [facility]: Dose Right [facility]: Teradose 4D [facility]: Doodle Mobile RADIATION DOSE: CT Rad equipment meets quality standard of care and radiation dose reduction techniq ues were employed. CTDIvol: 48.6 mGy. DLP: 905 mGy-cm. LIMITATIONS: None. FINDINGS: There is no acute intracranial hemorrhage, vascular territorial infarct, extra-axial fluid collection, mass effect or midline shift. There is no effacement of the cerebral sulci or basal sub arachnoid cisterns. The capellan-white matter differentiation is preserved. The caliber the ventricles is concordant with the degree of sulcation. The globes are aphakic. The orbits are intact. The paranasal sinuses are clear. There is no fractu re of the calvarium. IMPRESSION: No acute intracranial abnormality. EVIDENCE OF ACUTE STROKE: NO. COMMENT: Quality ID # [id number]: Final reports with documentation of one or more dose reduction techniques (e.g., Automated exposure control, adjustment of the mA and/or kV according to patient size, use of iterative reconstruction technique) TECHNICAL DOCUMENTATION: JOB ID: [id number] 2010 [employer]- All Rights Reserved Reading location - IP/workstation name: [email or web address]
[2019-07-18 10:47] LABS: ALBUMIN 2.9 g/dL (3.5-5.0); ALKALINE PHOSPHATASE 83 U/L (38-126); ANION GAP 5 (5-19); ASPARTATE AMINO TRANSFERASE 21 U/L (14-36); BILIRUBIN,DIRECT 0.1 mg/dL (0.0-0.4); BILIRUBIN,TOTAL 0.6 mg/dL (0.2-1.3); BLOOD UREA NITROGEN 23 mg/dL (7-20); CALCIUM 8.2 mg/dL (8.4-10.2); CARBON DIOXIDE 29 mmol/L (22-30); CHLORIDE 104 mmol/L (98-107); GLUCOSE 143 mg/dL (75-110); POTASSIUM 4.6 mmol/L (3.6-5.0); TOTAL PROTEIN 5.9 g/dL (6.3-8.2)
--- NOTE | 2019-07-18 11:15 | RADIOLOGY REPORT (SQ) ---
EXAM DESCRIPTION: CT ABD/PELVIS NO ORAL OR IV COMPLETED DATE/TIME: 07/18/2019 10:22 am REASON FOR STUDY: abd pain M25.552 PAIN IN LEFT HIP COMPARISON: None. TECHNIQUE: CT scan of the abdomen and pelvis performed without intravenous or oral contrast. Images reviewed with lung, soft tissue, and bone windows. Reconstructed coronal and sagittal MPR images revi ewed. All images stored on PACS. All CT scanners at this facility use dose modulation, iterative reconstruction, and/or weight based d osing when appropriate to reduce radiation dose to as low as reasonably achievable (ALARA). [facility]: Dose Right [facility]: CareDose [facility]: Dose Right [facility]: Teradose 4D [facility]: [employer] RADIATION DOSE: CT Rad equipment meets quality standard of care and radiation dose reduction techniq ues were employed. CTDIvol: 18.6 mGy. DLP: 1046 mGy-cm. LIMITATIONS: None. FINDINGS: LOWER CHEST: No acute findings. NON-CONTRASTED LIVER, SPLEEN, ADRENALS: Evaluation is limited due to the absence of intravenous contr ast. There is no CT evidence of hepatic steatosis. The spleen is normal in size. There are accesso ry splenules in the splenic hilum. The mild nodular enlargement of the left adrenal gland is nonspec ific and could reflect adenomatous hyperplasia. There is no abnormality of the right adrenal gland PANCREAS: No acute gross abnormality of the pancreas. GALLBLADDER: The gallbladder is surgically absent. RIGHT KIDNEY AND URETER: Evaluation is limited due to the absence of intravenous contrast. There is no hydronephrosis, nephrolithiasis, hydroureter or ureterolithiasis. LEFT KIDNEY AND URETER: Evaluation is limited due to the absence of intravenous contrast. There is no hydronephrosis, nephrolithiasis, hydroureter or ureterolithiasis. AORTA AND RETROPERITONEUM: No aneurysm of the abdominal aorta. There is no retroperitoneal adenopath y, hemorrhage or mass. BOWEL AND PERITONEAL CAVITY: There are surgical clips that surround the gastric fundus - does the pat ient have a history of bariatric surgery? The gastric fundus is distended and filled with heterogene ous material that contains trapped air. There is no bowel obstruction, bowel wall thickening or jelly colonic/perienteric inflammation. There is no mesenteric adenopathy, free intraperitoneal fluid or m esenteric/omental inflammation. APPENDIX: Unable to visualize the appendix. There is no pericecal inflammation. PELVIS, BLADDER, AND ABDOMINAL WALL:The urinary bladder is distended and normal in appearance. There is no abnormality of the adnexa that is apparent on CT. BONES: Status post interbody and transpedicular fusion from L4-S1. The patient is also status post l eft JOANA; there is subcutaneous emphysema and edema in the adjacent tissues. There is no periprostheti c fracture or drainable postoperative collection. OTHER: No other finding. IMPRESSION: 1. Expected subcutaneous emphysema and edema in the left thigh after recent JOANA. There is no periprosthetic fracture or drainable postoperative collection. 2. There are surgical clips that surround the gastric fundus - does the patient have a history of bar iatric surgery? 3. Other findings as detailed above. COMMENT: Quality ID # [id number]: Final reports with documentation of one or more dose reduction techniques (e.g., Automated exposure control, adjustment of the mA and/or kV according to patient size, use of iterative reconstruction technique) TECHNICAL DOCUMENTATION: JOB ID: [id number] 2010 [employer]- All Rights Reserved Reading location - IP/workstation name: [email or web address]
--- NOTE | 2019-07-18 11:26 | CDI QUERY ---
CDI Query CDI Review: Dear Provider: To better reflect your patients severity of illness, morbidity, and resource utilization Please specify and document in the Progress Notes and Discharge Summary if you are monitoring / treating / evaluating any of the following conditions: Query Clinical indicators Toxic Encephalopathy Acute / Post-op confusion Delirium Drug-induced delirium Hospitalist Consult Note Patient underwent left hip arthroplasty yesterday for severe primary left hip osteoarthritis. She tolerated procedure well. However earlier today, she was noted to have episodes of confusion. Daughter who is a nurse did mention that she saw she still had a scopolamine patch on her back from her surgery yesterday. Daughter said that she removed the patch herself prior to this encounter. Patient has only been getting Tylenol and she had a dose of oxycodone last night. Acute encephalopathy Is this a current diagnosis for this admission?: Yes Plan: Patient appears to be at her baseline mentation and is very coherent and AO x4 on encounter. Differentials for her confusion earlier include acute delirium post surgery but also considering scopolamine contributing to the confusion as it does cause disorientation in some patients. As mentioned, scopolamine patch was just removed by daughter prior to this encounter. Agree with primary service about minimizing opiates for pain control. The terms probable, suspected, likely, possible or still to be ruled out may be used if you are unable to determine the exact nature of a condition. Thank you, Clinical Documentation Physician Advisors BRIAN Mccracken RN, BSN RN Office [phone] Office [phone]
[2019-07-18 11:28] LABS: FREE T3 2.85 pg/mL (2.77-5.27); FREE T4 (FREE THYROXINE) 1.21 ng/dL (0.78-2.19)
[2019-07-18 11:41] LABS: THYROID STIMULATING HORMONE 9.73 uIU/mL (0.47-4.68)
--- NOTE | 2019-07-18 11:44 | PDOC PROGRESS REPORT ---
Subjective Progress Note for:: 07/18/19 Subjective:: The patient is doing well this AM. Pain is present but not out of proportion and well controlled on their current medications. There are no new symptoms or overnight events. Overall they are felling well without complaints. They deny chest pain, shortness of breath or motor or sensory loss. The patient's daughter was with her last night. She reports a rough night of confusion. However since this morning she has been doing well and more lucid. Overall feel that she is been improving and doing well today. Reason For Visit: M25.552 PAIN IN LEFT HIP Physical Exam Vital Signs: Temp Pulse Resp BP Pulse Ox 98.1 F 63 16 107/49 L 99 07/18/19 08:04 07/18/19 09:50 07/18/19 09:50 07/18/19 09:50 07/18/19 08:04 Intake & Output 07/17/19 07/18/19 07/19/19 06:59 06:59 06:59 Intake Total 5500 1398 Output Total 2350 250 Balance 3150 1148 Weight 76 kg 76.2 kg Physical Exam: Left lower extremity -Pulses 2+ distally -Compartments soft -Wound clean dry and intact minimal spotting, appropriate appearance for postoperative day #1 -Sensation grossly intact to L3-4-5 S1 -Motor grossly intact to EHL TA gastroc and quad - Able to perform quad extension and elevate heel off of bed. Results Laboratory Results: 07/18/19 10:00 07/18/19 10:00 07/17/19 07/17/19 07/17/19 17:06 17:06 21:02 WBC 9.0 RBC 3.99 Hgb 11.4 L Hct 34.0 L MCV 85 MCH 28.6 MCHC 33.6 RDW 14.7 H Plt Count 203 Seg Neutrophils % 68.1 Sodium 136.2 L Potassium 5.0 Chloride 99 Carbon Dioxide 28 Anion Gap 9 BUN 29 H Creatinine 1.31 H Est GFR ( Amer) 49 L Glucose 132 H Lactic Acid Calcium 8.5 Total Bilirubin AST Alkaline Phosphatase Total Protein Albumin Urine Color YELLOW Urine Appearance SLIGHTLY-CLOUDY Urine pH 5.0 Ur Specific [place] 1.024 Urine Protein NEGATIVE Urine Glucose (UA) NEGATIVE Urine Ketones NEGATIVE Urine Blood NEGATIVE Urine Nitrite NEGATIVE Ur Leukocyte Esterase NEGATIVE Urine WBC (Auto) 3 Urine RBC (Auto) 1 07/18/19 07/18/19 07/18/19 10:00 10:00 10:00 WBC 6.3 RBC 3.58 L Hgb 10.5 L Hct 30.8 L MCV 86 MCH 29.3 MCHC 34.0 RDW 14.4 H Plt Count 163 Seg Neutrophils % 73.7 Sodium 138.2 Potassium 4.6 Chloride 104 Carbon Dioxide 29 Anion Gap 5 BUN 23 H Creatinine 0.95 Est GFR ( Amer) > 60 Glucose 143 H Lactic Acid 0.9 Calcium 8.2 L Total Bilirubin 0.6 AST 21 Alkaline Phosphatase 83 Total Protein 5.9 L Albumin 2.9 L Urine Color Urine Appearance Urine pH Ur Specific [place] Urine Protein Urine Glucose (UA) Urine Ketones Urine Blood Urine Nitrite Ur Leukocyte Esterase Urine WBC (Auto) Urine RBC (Auto) Impressions: Fluoroscopy 07/16/19 00:00 IMPRESSION: IMAGE(S) OBTAINED DURING PROCEDURE. Hip X-Ray 07/16/19 15:22 IMPRESSION: SATISFACTORY POSTOPERATIVE LEFT HIP. Chest X-Ray 07/17/19 00:00 IMPRESSION: No focal airspace disease or other evidence of acute cardiopulmonary process. KUB X-Ray 07/17/19 00:00 IMPRESSION: No evidence of intestinal obstruction or other acute intra- abdominal/ pelvic process. Abdomen/Pelvis CT 07/18/19 00:00 IMPRESSION: 1. Expected subcutaneous emphysema and edema in the left thigh after recent JOANA. There is no periprosthetic fracture or drainable postoperat zulay collection. 2. There are surgical clips that surround the gastric fundus - does the patient have a history of bariatric surgery? 3. Other findings as detailed above. Head CT 07/18/19 00:00 IMPRESSION: No acute intracranial abnormality. EVIDENCE OF ACUTE STROKE: NO. Assessment & Plan - Diagnosis (1) Status post total hip replacement, left Is this a current diagnosis for this admission?: Yes Plan: Postoperative day #1 -She is currently considering rehab placement. I discussed this with the patient and with case management. The family is supportive for her to return home at this time. I will adjust as they request. Potentially discharge today. - 2 doses of Ancef postoperatively q 8 hours to complete 24 hours perioperatively - Weightbearing as tolerated, no precautions, encourage out of bed GEORGE for ADL training - PT/OT -aspirin 325 daily for DVT prophylaxis for 6 weeks -multimodal pain management to avoid excessive narcotics, including gabapentin, tramadol, Toradol, acetaminophen. -Dressing should not be removed for 7 to 10 days until seen in the office -May shower with the dressing intact, if it starts to come off she should not g et the incision wet. -I would like to follow the patient my office within the next 7 to 10 days at [address] [facility] in [place] office #: [phone] - Time Time Spent with patient: Less than 15 minutes
--- NOTE | 2019-07-18 14:32 | PDOC PROGRESS REPORT ---
Subjective Progress Note for:: 07/18/19 Subjective:: Patient had episodes of confusion and disorientation again last night. Upon encounter this morning, she is at her baseline. She is AAO x4. She was able to ambulate with a walker with no significant assistance from PT. Denies other acute complaints. Reason For Visit: M25.552 PAIN IN LEFT HIP Physical Exam Vital Signs: Temp Pulse Resp BP Pulse Ox 97.9 F 66 18 106/57 L 97 07/18/19 12:02 07/18/19 12:02 07/18/19 12:02 07/18/19 12:02 07/18/19 12:02 Intake & Output 07/17/19 07/18/19 07/19/19 06:59 06:59 06:59 Intake Total 5500 1398 240 Output Total 2350 250 550 Balance 3150 1148 -310 Weight 167 lb 8.821 oz 167 lb 15.876 oz General appearance: PRESENT: no acute distress, well-developed, well-nourished Head exam: PRESENT: atraumatic, normocephalic Eye exam: PRESENT: conjunctiva pink, EOMI, PERRLA. ABSENT: scleral icterus Ear exam: PRESENT: normal external ear exam Mouth exam: PRESENT: moist, tongue midline Neck exam: ABSENT: carotid bruit, JVD, lymphadenopathy, thyromegaly Respiratory exam: PRESENT: clear to auscultation [place]. ABSENT: rales, rhonchi, wheezes Cardiovascular exam: PRESENT: RRR. ABSENT: diastolic murmur, rubs, systolic murmur Pulses: PRESENT: normal dorsalis pedis pul GI/Abdominal exam: PRESENT: normal bowel sounds, soft. ABSENT: distended, guarding, mass, organolmegaly, rebound, tenderness Rectal exam: PRESENT: deferred Extremities exam: ABSENT: calf tenderness Neurological exam: PRESENT: alert, awake, oriented to person, oriented to place, oriented to time, oriented to situation, CN II-XII grossly intact. ABSENT: motor sensory deficit Results Laboratory Results: 07/18/19 10:00 07/18/19 10:00 07/17/19 07/17/19 07/17/19 17:06 17:06 21:02 WBC 9.0 RBC 3.99 Hgb 11.4 L Hct 34.0 L MCV 85 MCH 28.6 MCHC 33.6 RDW 14.7 H Plt Count 203 Seg Neutrophils % 68.1 Sodium 136.2 L Potassium 5.0 Chloride 99 Carbon Dioxide 28 Anion Gap 9 BUN 29 H Creatinine 1.31 H Est GFR ( Amer) 49 L Glucose 132 H Lactic Acid Calcium 8.5 Total Bilirubin AST Alkaline Phosphatase Total Protein Albumin TSH Free T4 Free T3 pg/mL Urine Color YELLOW Urine Appearance SLIGHTLY-CLOUDY Urine pH 5.0 Ur Specific [place] 1.024 Urine Protein NEGATIVE Urine Glucose (UA) NEGATIVE Urine Ketones NEGATIVE Urine Blood NEGATIVE Urine Nitrite NEGATIVE Ur Leukocyte Esterase NEGATIVE Urine WBC (Auto) 3 Urine RBC (Auto) 1 07/18/19 07/18/19 07/18/19 10:00 10:00 10:00 WBC 6.3 RBC 3.58 L Hgb 10.5 L Hct 30.8 L MCV 86 MCH 29.3 MCHC 34.0 RDW 14.4 H Plt Count 163 Seg Neutrophils % 73.7 Sodium 138.2 Potassium 4.6 Chloride 104 Carbon Dioxide 29 Anion Gap 5 BUN 23 H Creatinine 0.95 Est GFR ( Amer) > 60 Glucose 143 H Lactic Acid Calcium 8.2 L Total Bilirubin 0.6 AST 21 Alkaline Phosphatase 83 Total Protein 5.9 L Albumin 2.9 L TSH 9.73 H Free T4 1.21 Free T3 pg/mL 2.85 Urine Color Urine Appearance Urine pH Ur Specific [place] Urine Protein Urine Glucose (UA) Urine Ketones Urine Blood Urine Nitrite Ur Leukocyte Esterase Urine WBC (Auto) Urine RBC (Auto) 07/18/19 10:00 WBC RBC Hgb Hct MCV MCH MCHC RDW Plt Count Seg Neutrophils % Sodium Potassium Chloride Carbon Dioxide Anion Gap BUN Creatinine Est GFR ( Amer) Glucose Lactic Acid 0.9 Calcium Total Bilirubin AST Alkaline Phosphatase Total Protein Albumin TSH Free T4 Free T3 pg/mL Urine Color Urine Appearance Urine pH Ur Specific [place] Urine Protein Urine Glucose (UA) Urine Ketones Urine Blood Urine Nitrite Ur Leukocyte Esterase Urine WBC (Auto) Urine RBC (Auto) Impressions: Fluoroscopy 07/16/19 00:00 IMPRESSION: IMAGE(S) OBTAINED DURING PROCEDURE. Hip X-Ray 07/16/19 15:22 IMPRESSION: SATISFACTORY POSTOPERATIVE LEFT HIP. Chest X-Ray 07/17/19 00:00 IMPRESSION: No focal airspace disease or other evidence of acute car diopulmonary process. KUB X-Ray 07/17/19 00:00 IMPRESSION: No evidence of intestinal obstruction or other acute intra- abdominal/ pelvic process. Abdomen/Pelvis CT 07/18/19 00:00 IMPRESSION: 1. Expected subcutaneous emphysema and edema in the left thigh after recent JOANA. There is no periprosthetic fracture or drainable postoperative collection. 2. There are surgical clips that surround the gastric fundus - does the patient have a history of bariatric surgery? 3. Other findings as detailed above. Head CT 07/18/19 00:00 IMPRESSION: No acute intracranial abnormality. EVIDENCE OF ACUTE STROKE: NO. Assessment and Plan - Diagnosis (1) Acute encephalopathy Is this a current diagnosis for this admission?: Yes Plan: 07/17: Patient appears to be at her baseline mentation and is very coherent and AO x4 on encounter. Differentials for her confusion earlier include acute delirium post surgery but also considering scopolamine contributing to the confusion as it does cause disorientation in some patients. As mentioned, scopolamine patch was just removed by daughter prior to this encounter. Agree with primary service about minimizing opiates for pain control. Will check a CBC and BMP as well. 07/18: At baseline mentation on encounter this morning. Likely acute delirium in an elderly patient due to acute hospitalization. Suspecting scopolamine patch may have contributed to disorientation. Scopolamine patch has a half-life of 9 hours but may have lingering effects for few days. (2) Status post total hip replacement, left Is this a current diagnosis for this admission?: Yes Plan: Orthopedics following. - Time Time Spent with patient: 25-34 minutes
[2019-07-18] MEDS: TRAMADOL HCL 50 MG TABLET PO PRN (22:43)
[2019-07-19] MEDS: ACETAMINOPHEN 325 MG TABLET PO SCH ×2 (06:59→09:28)
[2019-07-19] MEDS: GABAPENTIN 300 MG CAPSULE PO SCH ×2 (07:06→09:28)
[2019-07-19] MEDS: LEVOTHYROXINE SODIUM 0.025 MG TABLET PO SCH (07:07)
[2019-07-19] MEDS: LEVOTHYROXINE SODIUM 0.112 MG TABLET PO SCH (07:07)
--- NOTE | 2019-07-19 07:31 | PDOC PROGRESS REPORT ---
Subjective Progress Note for:: 07/19/19 Subjective:: Patient is doing well this morning. She has been walking with assistance. Overall feels much better than before surgery in regards to her left hip. Pain is well controlled. She is been accompanied by her daughter overnight who explains that last night was much improved over prior. She has been lucid throughout the night and has had a good morning so far. They are hopeful for discharge home today. Reason For Visit: M25.552 PAIN IN LEFT HIP Physical Exam Vital Signs: Temp Pulse Resp BP Pulse Ox 98.2 F 72 16 132/51 H 99 07/19/19 05:00 07/19/19 05:00 07/19/19 05:00 07/19/19 05:00 07/19/19 05:00 Intake & Output 07/18/19 07/19/19 07/20/19 06:59 06:59 06:59 Intake Total 1398 1190 Output Total 250 1750 Balance 1148 -560 Weight 76.2 kg 77.4 kg Physical Exam: Left lower extremity -Pulses 2+ distally -Compartments soft -Wound clean dry and intact no drainage -Sensation grossly intact to L3-4-5 S1 -Motor grossly intact to EHL TA gastroc and quad - Able to perform quad extension and elevate heel off of bed. Results Laboratory Results: 07/18/19 10:00 07/18/19 10:00 07/18/19 07/18/19 07/18/19 10:00 10:00 10:00 WBC 6.3 RBC 3.58 L Hgb 10.5 L Hct 30.8 L MCV 86 MCH 29.3 MCHC 34.0 RDW 14.4 H Plt Count 163 Seg Neutrophils % 73.7 Sodium 138.2 Potassium 4.6 Chloride 104 Carbon Dioxide 29 Anion Gap 5 BUN 23 H Creatinine 0.95 Est GFR ( Amer) > 60 Glucose 143 H Lactic Acid Calcium 8.2 L Total Bilirubin 0.6 AST 21 Alkaline Phosphatase 83 Total Protein 5.9 L Albumin 2.9 L TSH 9.73 H Free T4 1.21 Free T3 pg/mL 2.85 07/18/19 10:00 WBC RBC Hgb Hct MCV MCH MCHC RDW Plt Count Seg Neutrophils % Sodium Potassium Chloride Carbon Dioxide Anion Gap BUN Creatinine Est GFR ( Amer) Glucose Lactic Acid 0.9 Calcium Total Bilirubin AST Alkaline Phosphatase Total Protein Albumin TSH Free T4 Free T3 pg/mL Impressions: Fluoroscopy 07/16/19 00:00 IMPRESSION: IMAGE(S) OBTAINED DURING PROCEDURE. Hip X-Ray 07/16/19 15:22 IMPRESSION: SATISFACTORY POSTOPERATIVE LEFT HIP. Chest X-Ray 07/17/19 00:00 IMPRESSION: No focal airspace disease or other evidence of acute cardiopulmonary process. KUB X-Ray 07/17/19 00:00 IMPRESSION: No evidence of intestinal obstruction or other acute intra- abdominal/ pelvic process. Abdomen/Pelvis CT 07/18/19 00:00 IMPRESSION: 1. Expected subcutaneous emphysema and edema in the left thigh after recent JOANA. There is no periprosthetic fracture or drainable postoperative collection. 2. There are surgical clips that surround the gastric fundus - does the patient have a history of bariatric surgery? 3. Other findings as detailed above. Head CT 07/18/19 00:00 IMPRESSION: No acute intracranial abnormality. EVIDENCE OF ACUTE STROKE: NO. Assessment & Plan - Diagnosis (1) Status post total hip replacement, left Is this a current diagnosis for this admission?: Yes Plan: -Postoperative day #3 - 2 doses of Ancef postoperatively q 8 hours to complete 24 hours perioperatively -Weightbearing as tolerated, no precautions, encourage out of bed GEORGE for ADL training - PT/OT -aspirin 325 daily for DVT prophylaxis for 6 weeks -multimodal pain management to avoid excessive narcotics, including gabapentin, tramadol, Toradol, acetaminophen. -Dressing should not be removed for 7 to 10 days until seen in the office -May shower with the dressing intact, if it starts to come off she should not get the incision wet. -I would like to follow the patient my office within the next 7 to [address] days at [address] [place] [address]. in [place] office #: [phone] - Time Time Spent with patient: Less than 15 minutes
[2019-07-19 09:12] VITALS: BP 118/55
[2019-07-19] MEDS: METFORMIN HCL 500 MG TABLET PO SCH (11:04)
[2019-07-19] MEDS: METOPROLOL SUCCINATE 50 MG TAB.SR.24H PO SCH (11:04)
[2019-07-19] MEDS: CELECOXIB 200 MG CAPSULE PO SCH (11:04)
[2019-07-19] MEDS: ASPIRIN 325 MG TABLET PO SCH (11:04)
[2019-07-19] MEDS: POLYETHYLENE GLYCOL 3350 POWDER 17 GM/1 PACKET PO SCH (11:07)
--- NOTE | 2019-07-19 13:46 | PDOC PROGRESS REPORT ---
Subjective Progress Note for:: 07/19/19 Subjective:: 07/18: Patient had episodes of confusion and disorientation again last night. Upon encounter this morning, she is at her baseline. She is AAO x4. She was able to ambulate with a walker with no significant assistance from PT. Denies other acute complaints. 07/19: Patient is at her baseline mentation. No recurrence of confusion or disorientation. She denies acute complaints. She is very sharp and is AO x4. Patient is being discharged to home today. Her disorientation was likely acute delirium related to her acute hospitalization in the elderly with effects from scopolamine patch contributing. Hospitalist service will be signing off. Reason For Visit: M25.552 PAIN IN LEFT HIP Physical Exam Vital Signs: Temp Pulse Resp BP Pulse Ox 98.4 F 70 18 118/55 L 97 07/19/19 07:13 07/19/19 07:13 07/19/19 07:13 07/19/19 07:13 07/19/19 07:13 Intake & Output 07/18/19 07/19/19 07/20/19 06:59 06:59 06:59 Intake Total 1398 1190 476 Output Total 250 1750 Balance 1148 -560 476 Weight 167 lb 15.876 oz 170 lb 10.205 oz General appearance: PRESENT: no acute distress, well-developed, well-nourished Head exam: PRESENT: atraumatic, normocephalic Eye exam: PRESENT: conjunctiva pink, EOMI, PERRLA. ABSENT: scleral icterus Ear exam: PRESENT: normal external ear exam Mouth exam: PRESENT: moist, tongue midline Neck exam: ABSENT: carotid bruit, JVD, lymphadenopathy, thyromegaly Respiratory exam: PRESENT: clear to auscultation [place]. ABSENT: rales, rhonchi, wheezes Cardiovascular exam: PRESENT: RRR. ABSENT: diastolic murmur, rubs, systolic murmur Pulses: PRESENT: normal dorsalis pedis pul GI/Abdominal exam: PRESENT: normal bowel sounds, soft. ABSENT: distended, guarding, mass, organolmegaly, rebound, tenderness Rectal exam: PRESENT: deferred Neurological exam: PRESENT: alert, awake, oriented to person, oriented to place, oriented to time, oriented to situation, CN II-XII grossly intact. ABSENT: motor sensory deficit Results Laboratory Results: 07/18/19 10:00 07/18/19 10:00 Impressions: Fluoroscopy 07/16/19 00:00 IMPRESSION: IMAGE(S) OBTAINED DURING PROCEDURE. Hip X-Ray 07/16/19 15:22 IMPRESSION: SATISFACTORY POSTOPERATIVE LEFT HIP. Chest X-Ray 07/17/19 00:00 IMPRESSION: No focal airspace disease or other evidence of acute cardiopulmonary process. KUB X-Ray 07/17/19 00:00 IMPRESSION: No evidence of intestinal obstruction or other acute intra- abdominal/ pelvic process. Abdomen/Pelvis CT 07/18/19 00:00 IMPRESSION: 1. Expected subcutaneous emphysema and edema in the left thigh after recent JOANA. There is no periprosthetic fracture or drainable postoperative collection. 2. There are surgical clips that surround the gastric fundus - does the patient have a history of bariatric surgery? 3. Other findings as detailed above. Head CT 07/18/19 00:00 IMPRESSION: No acute intracranial abnormality. EVIDENCE OF ACUTE STROKE: NO. Assessment and Plan - Diagnosis (1) Acute encephalopathy Is this a current diagnosis for this admission?: Yes Plan: 07/17: Patient appears to be at her baseline mentation and is very coherent and AO x4 on encounter. Differentials for her confusion earlier include acute delirium post surgery but also considering scopolamine contributing to the confusion as it does cause disorientation in some patients. As mentioned, scopolamine patch was just removed by daughter prior to this encounter. Agree with primary service about minimizing opiates for pain control. Will check a CBC and BMP as well. 07/18: At baseline mentation on encounter this morning. Likely acute delirium in an elderly patient due to acute hospitalization. Suspecting scopolamine patch may have contributed to disorientation. Scopolamine patch has a half-life of 9 hours but may have lingering effects for few days. 07/19: Resolved. (2) Status post total hip replacement, left Is this a current diagnosis for this admission?: Yes Plan: Orthopedics following. - Time Time Spent with patient: 25-34 minutes
--- NOTE | 2019-07-24 15:14 | PDOC DISCHARGE SUMMARY ---
Impression - Admit/DC Date/PCP Admission Date/Primary Care Provider: 07/16/19 09:18 RAMOS CLEMENTS MD Discharge Date: 07/19/19 - Discharge Diagnosis (1) Status post total hip replacement, left Is this a current diagnosis for this admission?: Yes - Assessment Summary: Ms. Dempsey is a very pleasant 68-year-old female who presented to my clinic with chronic left pain that is been going on for over a year. After thorough work-up and attempts at conservative treatment including activity modification and [id number] pain medication, they were having severe difficulty with ambulation and was over the counter pain medication for daily activity. They found the pain debilitating and decreasing thier quality of life as they were unable to perform activities of daily living such as ambulating short distances and getting in and out of the car. After a thorough work-up including x-rays that demonstrated joint space narrowing, [id number] contact, subchondral sclerosis, and osteophyte formation as well as discussing risks and benefits and other treatment options, the patient elected to proceed with a left total hip arthroplasty. They were brought to the operating room on 06/26/2019 and underwent a total hip arthroplasty and tolerated procedure very well with out complication. They were then admitted to the hospital floor for postoperative medical management, monitoring, and pain control. On postoperative day #1 they were ambulating well with physical therapy, to the degree that they approved them for discharge home. However from a medical standpoint the patient had some delirium postoperatively. The hospitalist was consulted for further evaluation and management, their recommendations were followed. The patient also had some hypotension following surgery which responded well to IV fluids as well as holding some of her blood pressure medication. Additionally the family and the patient were potentially interested in going to a rehab facility. After discussing this with the patient and the family further and her improved course over the following 2 days the patient desired to return to home in agreement with her family. Her delirium improved over her course to have returned to baseline on the night of the . Her daughter spent the night with her and explained that her night was much better and that altogether she had become much more lucid. On the day of the both the family and the patient were comfortable with her returning home as she had appeared to return to baseline mental function. They were discharged home on 07/19/2019. They had no acute events or complications over the course of their stay. All detailed instructions and prescriptions were provided to the patient prior to admission on the year prior office visit. - Additional Information Resuscitation Status: Full Code Discharge Diet: Diabetic Discharge Activity: Activity As Tolerated, No Driving, Keep Legs Elevated, No Lifting Over 10 Pounds, Slowly Increase Activity, No tub bath, Walk Frequently Referrals: TRISTAN COOL JR, DO [ACTIVE PROVISIONAL STAFF] - 07/29/19 2:25 pm Home Medications: Cyanocobalamin (Vitamin B-12) [Vitamin B-12 Inj 1000 Mcg/1 ml Vial] 1 ml IM .QMONTHLY 05/29/19 Duloxetine HCl 60 mg PO DAILY 05/29/19 Gabapentin 600 mg PO Q8 05/29/19 Levothyroxine Sodium [Synthroid] 137 mcg PO DAILY 05/29/19 Methocarbamol 1,000 mg PO BIDP PRN 05/29/19 Metoprolol Succinate [Toprol Xl 50 mg Tab.sr] 50 mg PO DAILY 05/29/19 Tramadol HCl [Ultram] 100 mg PO Q8HP PRN 05/29/19 Trospium Chloride [Trospium Chloride ER] 60 mg PO DAILY 05/29/19 Acetaminophen [Tylenol 325 mg Tablet] 975 mg PO Q8 tablet 07/17/19 Aspirin [Aspirin 325 mg Tablet] 325 mg PO DAILY tablet 07/17/19 Celecoxib [Celebrex 200 mg Capsule] 200 mg PO DAILY capsule 07/17/19 Diphenhydramine HCl [Benadryl 25 mg Capsule] 25 mg PO Q6HP PRN capsule 07/17/19 Docusate Sodium [Colace 100 mg Capsule] 100 mg PO TIDP PRN capsule 07/17/19 Metformin HCl 500 mg PO BID 07/17/19 Metoprolol Succinate [Toprol Xl 50 mg Tab.sr] 50 mg PO DAILY tab.sr.24h 07/17/19 Oxycodone HCl [Oxy-Ir 5 mg Tablet] 5 mg PO Q4HP PRN tablet 07/17/19 Oxycodone HCl [Oxy-Ir 5 mg Tablet] 10 mg PO Q4HP PRN tablet 07/17/19 History of Present Illiness History of Present Illness: SKYLAR DEMPSEY is a 68 year old female Physical Exam Vital Signs: Temp Pulse Resp BP Pulse Ox 98.4 F 70 18 118/55 L 97 07/19/19 07:13 07/19/19 07:13 07/19/19 07:13 07/19/19 07:13 07/19/19 07:13 Results Laboratory Results: WBC 6.3 10^3/uL (4.0-10.5) 07/18/19 10:00 RBC 3.58 10^6/uL (3.72-5.28) L 07/18/19 10:00 Hgb 10.5 g/dL (12.0-15.5) L 07/18/19 10:00 Hct 30.8 % (36.0-47.0) L 07/18/19 10:00 MCV 86 fl (80-97) 07/18/19 10:00 MCH 29.3 pg (27.0-33.4) 07/18/19 10:00 MCHC 34.0 g/dL (32.0-36.0) 07/18/19 10:00 RDW 14.4 % (11.5-14.0) H 07/18/19 10:00 Plt Count 163 10^3/uL (150-450) 07/18/19 10:00 Lymph % (Auto) 13.7 % (13-45) 07/18/19 10:00 [place] % (Auto) 8.2 % (3-13) 07/18/19 10:00 Eos % (Auto) 3.5 % (0-6) 07/18/19 10:00 Baso % (Auto) 0.9 % (0-2) 07/18/19 10:00 Absolute Neuts (auto) 4.7 10^3/uL (1.7-8.2) 07/18/19 10:00 Absolute Lymphs (auto) 0.9 10^3/uL (0.5-4.7) 07/18/19 10:00 Absolute Monos (auto) 0.5 10^3/uL (0.1-1.4) 07/18/19 10:00 Absolute Eos (auto) 0.2 10^3/uL (0.0-0.6) 07/18/19 10:00 Absolute Basos (auto) 0.1 10^3/uL (0.0-0.2) 07/18/19 10:00 Seg Neutrophils % 73.7 % (42-78) 07/18/19 10:00 Sodium 138.2 mmol/L (137-145) 07/18/19 10:00 Potassium 4.6 mmol/L (3.6-5.0) 07/18/19 10:00 Chloride 104 mmol/L (98-107) 07/18/19 10:00 Carbon Dioxide 29 mmol/L (22-30) 07/18/19 10:00 Anion Gap 5 (5-19) 07/18/19 10:00 BUN 23 mg/dL (7-20) H 07/18/19 10:00 Creatinine 0.95 mg/dL (0.52-1.25) 07/18/19 10:00 Est GFR ( Amer) > 60 (>60) 07/18/19 10:00 Est GFR (MDRD) Non-Af 58 (>60) L 07/18/19 10:00 Glucose 143 mg/dL (75-110) H 07/18/19 10:00 Lactic Acid 0.9 mmol/L (0.7-2.1) 07/18/19 10:00 Calcium 8.2 mg/dL (8.4-10.2) L 07/18/19 10:00 Total Bilirubin 0.6 mg/dL (0.2-1.3) 07/18/19 10:00 Direct Bilirubin 0.1 mg/dL (0.0-0.4) 07/18/19 10:00 Neonat Total Bilirubin Not Reportable 07/18/19 10:00 Neonat Direct Bilirubin Not Reportable 07/18/19 10:00 Neonat Indirect Bili Not Reportable 07/18/19 10:00 AST 21 U/L (14-36) 07/18/19 10:00 ALT 5 U/L (<35) 07/18/19 10:00 Alkaline Phosphatase 83 U/L (38-126) 07/18/19 10:00 Total Protein 5.9 g/dL (6.3-8.2) L 07/18/19 10:00 Albumin 2.9 g/dL (3.5-5.0) L 07/18/19 10:00 TSH 9.73 uIU/mL (0.47-4.68) H 07/18/19 10:00 Free T4 1.21 ng/dL (0.78-2.19) 07/18/19 10:00 Free T3 pg/mL 2.85 pg/mL (2.77-5.27) 07/18/19 10:00 Urine Color YELLOW 07/17/19 21:02 Urine Appearance SLIGHTLY-CLOUDY 07/17/19 21:02 Urine pH 5.0 (5.0-9.0) 07/17/19 21:02 Ur Specific [place] 1.024 07/17/19 21:02 Urine Protein NEGATIVE mg/dL (NEGATIVE) 07/17/19 21:02 Urine Glucose (UA) NEGATIVE mg/dL (NEGATIVE) 07/17/19 21:02 Urine Ketones NEGATIVE mg/dL (NEGATIVE) 07/17/19 21:02 Urine Blood NEGATIVE (NEGATIVE) 07/17/19 21:02 Urine Nitrite NEGATIVE (NEGATIVE) 07/17/19 21:02 Urine Bilirubin NEGATIVE (NEGATIVE) 07/17/19 21:02 Urine Urobilinogen NEGATIVE mg/dL (<2.0) 07/17/19 21:02 Ur Leukocyte Esterase NEGATIVE (NEGATIVE) 07/17/19 21:02 Urine WBC (Auto) 3 /HPF 07/17/19 21:02 Urine RBC (Auto) 1 /HPF 07/17/19 21:02 U Hyaline Cast (Auto) 1 /LPF 07/17/19 21:02 Squamous Epi Cells Auto 8 /HPF 07/17/19 21:02 Urine Mucus (Auto) RARE /LPF 07/17/19 21:02 Urine Ascorbic Acid NEGATIVE (NEGATIVE) 07/17/19 21:02 Blood Type A POSITIVE 07/16/19 09:37 Antibody Screen NEGATIVE 07/16/19 09:37 Impressions: Fluoroscopy 07/16/19 00:00 IMPRESSION: IMAGE(S) OBTAINED DURING PROCEDURE. Hip X-Ray 07/16/19 00:00 IMPRESSION: IMAGE(S) OBTAINED DURING PROCEDURE. Hip X-Ray 07/16/19 15:22 IMPRESSION: SATISFACTORY POSTOPERATIVE LEFT HIP. Chest X-Ray 07/17/19 00:00 IMPRESSION: No focal airspace disease or other evidence of acute cardiopulmonary process. KUB X-Ray 07/17/19 00:00 IMPRESSION: No evidence of intestinal obstruction or other acute intra- abdominal/ pelvic process. Abdomen/Pelvis CT 07/18/19 00:00 IMPRESSION: 1. Expected subcutaneous emphysema and edema in the left thigh after recent JOANA. There is no periprosthetic fracture or drainable postoperative collection. 2. There are surgical clips that surround the gastric fundus - does the patient have a history of bariatric surgery? 3. Other findings as detailed above. Head CT 07/18/19 00:00 IMPRESSION: No acute intracranial abnormality. EVIDENCE OF ACUTE STROKE: NO. Stroke Is this a Stroke Patient?: No Acute Heart Failure - Is this a Heart Failure Patient?: No
[2019-08-12] MEDS ORDERED: CYANOCOBALAMIN (VITAMIN B-12) INJ 1000 MCG/1 ML VIAL IM SCH (10:00)
== END 2019-07-19 12:55 | disposition home or self-care (01) | DRG 469 ==
LOC: INOR 07-11 07:43 → UNDOADMIN 07-11 07:43 → INOR 07-16 09:18 → 4W 07-16 16:18
PROVIDERS: ADMIT Orthopaedic Surgery; ATTEND Orthopaedic Surgery
PROC: 0SRB04Z Replacement of Left Hip Joint with Ceramic on Polyethylene Synthetic Substitute, Open Approach (ICD-10-PCS; principal; 2019-07-16 11:30)
PROC: 3E02340 Introduction of Influenza Vaccine into Muscle, Percutaneous Approach (ICD-10-PCS; 2019-07-17)
DX: M16.12 Unilateral primary osteoarthritis, left hip (principal); G92 Toxic encephalopathy; T44.3X5A Adverse effect of other parasympatholytics [anticholinergics and antimuscarinics] and spasmolytics, initial encounter; Y92.230 Patient room in hospital as the place of occurrence of the external cause; I10 Essential (primary) hypertension; E11.9 Type 2 diabetes mellitus without complications; I95.81 Postprocedural hypotension; Z79.82 Long term (current) use of aspirin; Z88.5 Allergy status to narcotic agent; Z88.8 Allergy status to other drugs, medicaments and biological substances; Z23 Encounter for immunization
CPT/HCPCS: 01214; 36415; 70450; 71045; 74018; 74176; 80048; 80053; 81001; 82947; 83605; 84439; 84443; 84481; 85025; 86850; 86900; 86901; 90686; C1713; C1887; J0131; J0690; J1100; J1170; J1580; J1885; J2250; J2370; J2405; J2704; J2710; J3010; J3370; J3490; J7030; J7060; S0119